=== PATIENT | female | born 1970 | race Caucasian/White ===

== ENCOUNTER 2017-01-09 12:28 | Emergency (ER) | payer SELFPAY ==
[~2017-01-09] VITALS: Ht 167.6 cm; Wt 75.0 kg
[~2017-01-09 12:28] MED LIST: ALPR.25 PO; PERC5TAB12 PO
[2017-01-09 12:30] VITALS: BP 143/77; PULSE 86; RESP 20; TEMP 98.8; O2SAT 97
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
[2017-01-09] MEDS ORDERED: KETOROLAC TROMETHAMINE 60 MG/2 ML (IM) VIAL IM ONE (13:30)
--- NOTE | 2017-01-09 14:07 | RADRPT ---
EXAM DATE/TIME: 01/09/2017 13:42 [facility] COMPARISON: No previous studies available for comparison. INDICATIONS : Tailbone pain after falling 4 days ago. MEDICAL HISTORY : None. SURGICAL HISTORY : None. ENCOUNTER: Initial ACUITY: 4 - 6 days PAIN SCORE: 8/10 LOCATION: Sacrum. FINDINGS: Two-view examination of the sacrum and coccyx demonstrates no evidence of fracture or malalignment. The sacral ala and foramina appear symmetric and intact. The coccyx appears unremarkable. The preve rtebral soft tissues are within normal limits. CONCLUSION: 1. There is no evidence of acute fracture. Conner Xiong MD on January 09, 2017 at 14:05 Board Certified Radiologist. This report was verified electronically.
[2017-01-09] MEDS ORDERED: IBUP800T23 PO (14:11)
[2017-01-09] MEDS ORDERED: CYCL1TAB29 PO (14:14)
== END 2017-01-09 14:33 | disposition home or self-care (01) ==
LOC: NEPK 12:28
DX: S39.92XA Unspecified injury of lower back, initial encounter (principal); R20.0 Anesthesia of skin; R20.2 Paresthesia of skin; Z87.39 Personal history of other diseases of the musculoskeletal system and connective tissue; Z86.59 Personal history of other mental and behavioral disorders; Z87.42 Personal history of other diseases of the female genital tract; W03.XXXA Other fall on same level due to collision with another person, initial encounter
CPT/HCPCS: 72220; 96372; 99283; J1885